=== PATIENT | female | born 1985 | race Caucasian/White ===

== ENCOUNTER → 2018-03-08 | Outpatient (CLI) | payer SELFPAY ==
[~2018-03-08] MED LIST: AMOCLA875 PO; AMOX500 PO; ANTOXYBENA LEFTEAR; CIPR250 PO; CIPR500 PO; CYCL10 PO; DESO.05TL TP; HYDACE5 PO; HYDACE5325 PO; IBUP600 PO; METR500 PO; NITR100CA PO; Norco 5-325 Ta1 EACH PO; OXYACE5T PO; OXYACE7.5T PO; PHENA200 PO; PRED20 PO; PROM25 PO; PSEU120ER PO; Percocet 5-3251 EACH PO; QUET300; RXCYCL10 PO; RXOXYACE PO; SULTRIDS PO; TRAM50 PO; Zithromax250 MG PO; Zofran Odt8 MG SL
[2018-03-10 16:40] LABS: Adenovirus F 40/41 Not Detected (NOT DETECT); Astrovirus Not Detected (NOT DETECT); Campylobacter Sp Not Detected (NOT DETECT); Cryptosporidium Not Detected (NOT DETECT); Cyclospora Cayetanensis Not Detected (NOT DETECT); E. Coli O157 Not Detected (NOT DETECT); Entamoeba Histolytica Not Detected (NOT DETECT); Enteroaggregative E. coli-EAEC Not Detected (NOT DETECT); Enteropathogenic E. coli-EPEC Not Detected (NOT DETECT); Enterotoxigenic E. coli-ETEC Not Detected (NOT DETECT); Giardia Lamblia Not Detected (NOT DETECT); Norovirus GI/GII Not Detected (NOT DETECT); Plesiomonas Shigelloides Not Detected (NOT DETECT); Rotavirus A Not Detected (NOT DETECT); Salmonella Sp Not Detected (NOT DETECT); Sapovirus Not Detected (NOT DETECT); Shiga Toxin-prod E. coli-STEC Not Detected (NOT DETECT); Shigella/Enteroin E. coli-EIEC Not Detected (NOT DETECT); Vibrio Cholerae Not Detected (NOT DETECT); Vibrio Sp Not Detected (NOT DETECT); Yersinia Enterocolitica Not Detected (NOT DETECT)
== END | disposition home or self-care (01) ==
LOC: LAB SHORT 14:00 → LAB EV 14:00
PROVIDERS: General Practice
DX: R19.7 Diarrhea, unspecified (principal)
CPT/HCPCS: 87507

== ENCOUNTER 2018-05-18 10:13 | Emergency (ER) | payer SELFPAY ==
[~2018-05-18] VITALS: Ht 165.1 cm; Wt 66.7 kg
[2018-05-18 10:50] LABS: BASOPHILS ABSOLUTE AUTO 0.04 K/mm3 (0.00-0.23); BASOPHILS PERCENT AUTO 0 % (0-2); EOSINOPHILS ABSOLUTE AUTO 0.16 K/mm3 (0.00-0.68); EOSINOPHILS PERCENT AUTO 1 % (0-6); Hematocrit 39.9 % (33.0-51.0); Hemoglobin 13.6 g/dL (11.5-16.0); IMMATURE GRAN ABSOLUTE AUTO 0.06 K/mm3 (0.00-0.10); IMMATURE GRAN PERCENT AUTO 0 % (0-1); LYMPHOCYTES ABSOLUTE AUTO 0.91 K/mm3 (0.84-5.20); LYMPHOCYTES PERCENT AUTO 5 % (21-46); MONOCYTES ABSOLUTE AUTO 0.46 K/mm3 (0.16-1.47); MONOCYTES PERCENT AUTO 3 % (4-13); Mean Corpuscular HGB Conc 34.1 g/dL (31.5-36.5); Mean Corpuscular Volume 88 fL (80-100); Mean Platelet Volume 12.1 fL (9.1-12.4); NEUTROPHILS ABSOLUTE AUTO 15.31 K/mm3 (1.96-9.15); NEUTROPHILS PERCENT AUTO 90 % (41-73); Platelet Count 161 K/mm3 (150-400); RDW Coefficient Variation 13.1 % (11.7-14.2); RDW Standard Deviation 42.4 fL (35.1-46.3); Red Blood Cell Count 4.53 M/mm3 (3.80-5.20); White Blood Cell Count 16.94 K/mm3 (4.00-11.30)
[2018-05-18 11:02] LABS: Source, Urine Clean Catch
[2018-05-18 11:08] LABS: Bilirubin, Urine Neg (Neg); Blood, Urine Neg (Neg); Glucose Qualitative, Urine Neg (Neg); Ketones, Urine Neg (Neg); Leukocyte Esterase, Urine Neg (Neg); Nitrite, Urine Neg (Neg); Protein, Urine Neg (Neg); Specific Gravity, Urine 1.005 (1.003-1.022); Urobilinogen, Urine NORM (Normal)
[2018-05-18 11:10] LABS: Alanine Aminotransfer (ALT/SGP 26 U/L (12-78); Albumin, Blood 4.2 g/dL (3.4-5.0); Albumin/Globulin Ratio 1.3 (0.8-1.8); Alk Phos 59 U/L (50-136); Anion Gap 8 mmol/L (6-16); Aspartate Aminotrans (AST/SGOT 23 U/L (12-37); Bilirubin, Total 0.7 mg/dL (0.1-1.0); Blood Urea Nitrogen 15 mg/dL (8-24); Bun/Creatinine Ratio 18.4 (12.0-20.0); CO2, Blood 25 mmol/L (21-32); Chloride, Blood 107 mmol/L (98-108); Creatinine, Blood 0.82 mg/dL (0.40-1.00); Globulin, Blood 3.2 g/dL (2.2-4.0); Glomerular Filtration Rate >60 (60-); Glucose, Blood 114 mg/dL (70-99); Potassium, Blood 3.8 mmol/L (3.5-5.5); Sodium, Blood 140 mmol/L (136-145); Total Protein, Blood 7.4 g/dL (6.4-8.2)
[2018-05-18 11:11] LABS: C-REACTIVE PROTEIN, EXT RANGE 0.901 mg/dL (0.000-0.300)
[2018-05-18 12:03] LABS: Appearance, Urine Clear (Clear); Color, Urine Yellow (P-Yellow)
[2018-05-18] MEDS ORDERED: Flagyl500 MG PO (13:51)
[2018-05-18] MEDS ORDERED: CEFP200 PO (13:51)
[2018-05-18] MEDS ORDERED: HYDR1TAB94 PO (13:52)
== END 2018-05-18 14:53 | disposition home or self-care (01) ==
LOC: ER 10:13
PROVIDERS: Emergency Medicine
DX: K52.9 Noninfective gastroenteritis and colitis, unspecified (principal); F17.200 Nicotine dependence, unspecified, uncomplicated; Z88.8 Allergy status to other drugs, medicaments and biological substances
CPT/HCPCS: 36415; 74177; 80053; 81003; 81025; 83690; 85025; 85651; 86140; 96361; 96374; 99284; C9113; J7030; Q9967

== ENCOUNTER → 2018-12-20 | Outpatient (CLI) | payer OTHER ==
[~2018-12-20] MED LIST changes: +CEFP200 PO; +Flagyl250 MG PO; +Flagyl500 MG PO; +HYDR1TAB94 PO; +Prednisone20 MG PO; +Zofran Odt4 MG SL
[2018-12-23 02:12] LABS: CHLAMYDIA TRACHOMATIS, NAA Negative (Negative); HPV 16 Negative (Negative); HPV 18 Negative (Negative); HPV OTHER HR TYPES Negative (Negative); NEISSERIA GONORRHOEAE, NAA Negative (Negative)
== END ==
LOC: LAB SHORT 16:37 → LAB 16:37
PROVIDERS: Obstetrics & Gynecology
DX: Z36.89 Encounter for other specified antenatal screening (principal)
CPT/HCPCS: 87491; 87591; 87624; G0123

== ENCOUNTER → 2019-04-14 | Outpatient (CLI) | payer OTHER ==
[2019-04-14 12:57] LABS: Hematocrit 33.8 % (33.0-51.0); Hemoglobin 11.1 g/dL (11.5-16.0)
== END | disposition home or self-care (01) ==
LOC: LAB SHORT 11:00 → LAB 11:00
PROVIDERS: Obstetrics & Gynecology
DX: Z34.80 Encounter for supervision of other normal pregnancy, unspecified trimester (principal)
CPT/HCPCS: 82950; 85014; 85018

== ENCOUNTER → 2019-06-08 | Outpatient (CLI) | payer OTHER ==
[~2019-06-08] MED LIST changes: +MISO200 PO; +ORTHO MICRONO0.35 MG PO; +Oxycodone-Apap1 EAC3 PO; +PRENATAL PLUS1 EACH PO; +Prenatal Compl1 EACH PO
== END | disposition home or self-care (01) ==
LOC: LAB SHORT 14:28 → LAB 14:28
DX: Z34.80 Encounter for supervision of other normal pregnancy, unspecified trimester (principal)
CPT/HCPCS: 87081; 87653

== ENCOUNTER 2019-07-04 06:16 | Inpatient (IN) | payer OTHER ==
[~2019-07-04] VITALS: Ht 165.1 cm; Wt 92.7 kg
[~2019-07-04 06:16] MED LIST changes: -MISO200 PO; -ORTHO MICRONO0.35 MG PO; -Oxycodone-Apap1 EAC3 PO; -PRENATAL PLUS1 EACH PO; -Prenatal Compl1 EACH PO
[2019-07-04 07:21] LABS: BASOPHILS ABSOLUTE AUTO 0.03 K/mm3 (0.00-0.23); BASOPHILS PERCENT AUTO 0 % (0-2); EOSINOPHILS ABSOLUTE AUTO 0.13 K/mm3 (0.00-0.68); EOSINOPHILS PERCENT AUTO 2 % (0-6); Hematocrit 32.2 % (33.0-51.0); Hemoglobin 10.2 g/dL (11.5-16.0); IMMATURE GRAN ABSOLUTE AUTO 0.04 K/mm3 (0.00-0.10); IMMATURE GRAN PERCENT AUTO 1 % (0-1); LYMPHOCYTES PERCENT AUTO 29 % (21-46); MONOCYTES ABSOLUTE AUTO 0.91 K/mm3 (0.16-1.47); MONOCYTES PERCENT AUTO 11 % (4-13); Mean Corpuscular HGB 26.6 pg (26.0-34.0); Mean Corpuscular HGB Conc 31.7 g/dL (31.5-36.5); Mean Corpuscular Volume 84 fL (80-100); NEUTROPHILS ABSOLUTE AUTO 5.04 K/mm3 (1.96-9.15); NEUTROPHILS PERCENT AUTO 58 % (41-73); Platelet Count 123 K/mm3 (150-400); RDW Standard Deviation 45.7 fL (35.1-46.3); Red Blood Cell Count 3.83 M/mm3 (3.80-5.20); White Blood Cell Count 8.65 K/mm3 (4.00-11.30)
[2019-07-04] MEDS ORDERED: Prenatal Compl1 EACH PO (08:02)
[2019-07-04 13:54] LABS: PCO2 Cord - Arterial 21.1 mmHg (40-50); PO2 Cord - Arterial 22.9 mmHg (16-20); pH Cord - Arterial 7.15 (7.28-7.35)
[2019-07-04 13:56] LABS: PCO2 Cord - Venous 42.6 mmHg (40-50); PO2 Cord - Venous 21.1 mmHg (28-32); pH Umbilical Cord - Venous 7.25 (7.26-7.35)
--- NOTE | 2019-07-04 18:00 | NUR ---
PP VOID #2. NICOLA MEDS AT THE BEDSIDE
--- NOTE | 2019-07-04 18:03 | NUR ---
1430 ACTIVITY OOB TO BATHROM TO VOID. PATIENT UNABLE TO AMBULATE DUE TO SORE HIPS AND PELVIC AREA. TO BATHROOM VIA ROLLING CHAIR AND BACK TO BED. REMINDED PATIENT TO CALL FOR ASSISTANCE PRIOR TO GETTING UP EACH TIME UNTIL ABLE TO AMBULATE UNAIDED
[2019-07-05 05:45] LABS: Hematocrit 26.9 % (33.0-51.0); Hemoglobin 8.5 g/dL (11.5-16.0); Mean Corpuscular HGB 26.8 pg (26.0-34.0); Mean Corpuscular HGB Conc 31.6 g/dL (31.5-36.5); Mean Corpuscular Volume 85 fL (80-100); Platelet Count 121 K/mm3 (150-400); RDW Coefficient Variation 15.3 % (11.7-14.2); RDW Standard Deviation 47.1 fL (35.1-46.3); Red Blood Cell Count 3.17 M/mm3 (3.80-5.20); White Blood Cell Count 16.72 K/mm3 (4.00-11.30)
[2019-07-05 05:48] LABS: Mean Platelet Volume 13.7 fL (9.1-12.4)
--- NOTE | 2019-07-05 07:51 | NUR ---
Pt resting in bed, feeding nb. Denies needs, will call when nb finished for assessment.
--- NOTE | 2019-07-05 17:00 | NUR ---
Printed d/c instructions and teaching reviewed w/pt and family. Questions answered to her satisfaction. ID bands matched w/nb. Pt still having difficulty and pain w/ambulation but states she will be ok w/her SO and family once at home. No acute changes t/o shift. Pt d/c'd home in wheelchair to care of family.
[2019-09-06] MEDS ORDERED: PRENATAL PLUS1 EACH PO (12:38)
[2019-09-06] MEDS ORDERED: ORTHO MICRONO0.35 MG PO (12:39)
== END 2019-07-05 16:58 | disposition home or self-care (01) | DRG 788 ==
LOC: OBS 06:16 → BC 06:17 → OBS 06:18 → BC 06:18
PROVIDERS: Advanced Practice Midwife; ADMIT Obstetrics & Gynecology
PROC: 10D00Z1 Extraction of Products of Conception, Low, Open Approach (ICD-10-PCS; principal; 2019-07-04)
DX: O34.211 Maternal care for low transverse scar from previous cesarean delivery (principal); Z3A.39 39 weeks gestation of pregnancy; Z37.0 Single live birth
CPT/HCPCS: 36415; 51702; 59025; 82803; 85025; 85027; 85460; 96372; A9270; J1885; J2001; J2405; J2590; J2790; J3010; J7120

== ENCOUNTER 2019-07-14 10:14 | Emergency (ER) | payer OTHER ==
[~2019-07-14] VITALS: Ht 165.1 cm; Wt 86.2 kg
[~2019-07-14 10:14] MED LIST changes: +Prenatal Compl1 EACH PO
[2019-07-14 10:30] LABS: Calcium, Ionized (POC) 1.11 mmol/L (1.10-1.46); Chloride (POC) 110 mmol/L (98-108); Creatinine (POC) 0.9 mg/dL (0.6-1.0); Glucose (ISTAT POC) 85 mg/dL (70-99); Hemoglobin (POC) 9.5 g/dL (12.0-16.0); Potassium (POC) 4.1 mmol/L (3.5-5.5); Sodium (POC) 140 mmol/L (135-148); Total CO2 (POC) 24 mmol/L (21-32)
[2019-07-14 15:32] LABS: BASOPHILS ABSOLUTE AUTO 0.04 K/mm3 (0.00-0.23); BASOPHILS PERCENT AUTO 0 % (0-2); EOSINOPHILS ABSOLUTE AUTO 0.18 K/mm3 (0.00-0.68); EOSINOPHILS PERCENT AUTO 2 % (0-6); Hematocrit 28.6 % (33.0-51.0); Hemoglobin 8.9 g/dL (11.5-16.0); IMMATURE GRAN ABSOLUTE AUTO 0.05 K/mm3 (0.00-0.10); IMMATURE GRAN PERCENT AUTO 1 % (0-1); LYMPHOCYTES PERCENT AUTO 22 % (21-46); MONOCYTES ABSOLUTE AUTO 0.62 K/mm3 (0.16-1.47); MONOCYTES PERCENT AUTO 7 % (4-13); Mean Corpuscular HGB 27.4 pg (26.0-34.0); Mean Corpuscular HGB Conc 31.1 g/dL (31.5-36.5); Mean Platelet Volume 11.7 fL (9.1-12.4); NEUTROPHILS ABSOLUTE AUTO 6.42 K/mm3 (1.96-9.15); NEUTROPHILS PERCENT AUTO 68 % (41-73); Platelet Count 326 K/mm3 (150-400); RDW Coefficient Variation 15.6 % (11.7-14.2); RDW Standard Deviation 50.1 fL (35.1-46.3); Red Blood Cell Count 3.25 M/mm3 (3.80-5.20); White Blood Cell Count 9.41 K/mm3 (4.00-11.30)
[2019-07-14 15:34] LABS: Mean Corpuscular Volume 88 fL (80-100)
[2019-09-06] MEDS ORDERED: PRENATAL PLUS1 EACH PO (12:38)
[2019-09-06] MEDS ORDERED: ORTHO MICRONO0.35 MG PO (12:39)
== END 2019-07-14 11:25 | disposition home or self-care (01) ==
LOC: ER 10:14
PROVIDERS: Emergency Medicine; Obstetrics & Gynecology
DX: O72.2 Delayed and secondary postpartum hemorrhage (principal); Z88.8 Allergy status to other drugs, medicaments and biological substances
CPT/HCPCS: 36415; 80047; 85014; 85025; 99284

== ENCOUNTER 2019-07-19 12:56 | Day surgery (SDC) | payer OTHER ==
[~2019-07-19] VITALS: Ht 165.1 cm; Wt 81.7 kg
[2019-07-19 13:53] LABS: BASOPHILS ABSOLUTE AUTO 0.07 K/mm3 (0.00-0.23); BASOPHILS PERCENT AUTO 1 % (0-2); EOSINOPHILS ABSOLUTE AUTO 0.15 K/mm3 (0.00-0.68); EOSINOPHILS PERCENT AUTO 1 % (0-6); Hematocrit 35.3 % (33.0-51.0); Hemoglobin 10.9 g/dL (11.5-16.0); IMMATURE GRAN ABSOLUTE AUTO 0.03 K/mm3 (0.00-0.10); IMMATURE GRAN PERCENT AUTO 0 % (0-1); LYMPHOCYTES ABSOLUTE AUTO 2.24 K/mm3 (0.84-5.20); LYMPHOCYTES PERCENT AUTO 19 % (21-46); MONOCYTES ABSOLUTE AUTO 0.61 K/mm3 (0.16-1.47); MONOCYTES PERCENT AUTO 5 % (4-13); Mean Corpuscular HGB 26.6 pg (26.0-34.0); Mean Corpuscular HGB Conc 30.9 g/dL (31.5-36.5); Mean Corpuscular Volume 86 fL (80-100); Mean Platelet Volume 11.5 fL (9.1-12.4); NEUTROPHILS ABSOLUTE AUTO 8.43 K/mm3 (1.96-9.15); NEUTROPHILS PERCENT AUTO 73 % (41-73); Platelet Count 409 K/mm3 (150-400); RDW Coefficient Variation 14.9 % (11.7-14.2); RDW Standard Deviation 47.1 fL (35.1-46.3); White Blood Cell Count 11.53 K/mm3 (4.00-11.30)
[2019-07-19 14:51] LABS: Alanine Aminotransfer (ALT/SGP 36 U/L (12-78); Albumin, Blood 3.4 g/dL (3.4-5.0); Albumin/Globulin Ratio 0.9 (0.8-1.8); Alk Phos 261 U/L (50-136); Anion Gap 9 mmol/L (6-16); Aspartate Aminotrans (AST/SGOT 23 U/L (12-37); Bilirubin, Total 0.2 mg/dL (0.1-1.0); Blood Urea Nitrogen 19 mg/dL (8-24); Bun/Creatinine Ratio 29.8 (12.0-20.0); CO2, Blood 24 mmol/L (21-32); Calcium, Blood 8.6 mg/dL (8.5-10.1); Chloride, Blood 109 mmol/L (98-108); Creatinine, Blood 0.64 mg/dL (0.40-1.00); Globulin, Blood 3.8 g/dL (2.2-4.0); Glomerular Filtration Rate >60 (60-); Glucose, Blood 95 mg/dL (70-99); Potassium, Blood 4.3 mmol/L (3.5-5.5); Sodium, Blood 142 mmol/L (136-145); Total Protein, Blood 7.2 g/dL (6.4-8.2)
[2019-07-19] MEDS ORDERED: MISO200 PO (15:50)
[2019-07-19] MEDS ORDERED: Oxycodone-Apap1 EAC3 PO (15:59)
--- NOTE | 2019-07-19 17:19 | NUR ---
INTO SDS VIA [id number]. PT DENIES PAIN OR NAUSEA AT THIS TIME. PT 2 WEEKS POST .BABY @ BEDESIDE PT IS . HISTORY AND ALLERGIES REVIEWED. LUNGS CLEAR. NPO STATUS CONFIRMED.
--- NOTE | 2019-07-19 19:53 | NUR ---
PACU/DAY SURGERY RN | DISCHARGE This RN took patient from PACU to day [facility] step-down. VSS. A/O. Gave oral pain medication per Dr. Overton orders. Patient stated they confirmed that medications "were okay while " per Dr. Overton. Discharge instructions given, all questions answered. Patient stated she gets nauseated from pain medication, gave Reglan per order. Patient up to bathroom, steady on feet. According to Chapis SLOAN, patient "passed large clot" while using the restroom. Advised patient to watch closely for increased bleeding. All vital signs stable. Patient rested and breast fed their baby. IV dc'ed without issue. Patient is aware to call Dr. Overton's office with any issues. Patient tolerated crackers and water without issue. All belonings returned to patient. Patient taken in wheelchair to front entrance by Chapis SLOAN.
--- NOTE | 2019-07-21 13:32 | NUR ---
07/21/19 1332 Morena Schwartz VERIFICATIONS: EDIT CHART.
[2019-09-06] MEDS ORDERED: PRENATAL PLUS1 EACH PO (12:38)
[2019-09-06] MEDS ORDERED: ORTHO MICRONO0.35 MG PO (12:39)
== END 2019-07-20 19:53 | disposition home or self-care (01) ==
LOC: ER 12:56 → SURS 12:57 → ORSCMMR 17:06 → SURS 07-20 19:53
PROVIDERS: Obstetrics & Gynecology
PROC: 10D17ZZ Extraction of Products of Conception, Retained, Via Natural or Artificial Opening (ICD-10-PCS; principal; 2019-07-19 18:00)
DX: O72.2 Delayed and secondary postpartum hemorrhage (principal); O86.12 Endometritis following delivery; D50.9 Iron deficiency anemia, unspecified
CPT/HCPCS: 36415; 80053; 85025; 86900; 86901; 88305; 99284; A9270-GY; J0690; J1100; J1885; J2210; J2250; J2405; J2704; J2765; J3010; J7120

== ENCOUNTER 2019-09-12 06:48 | Day surgery (SDC) | payer OTHER ==
[~2019-09-12] VITALS: Ht 165.1 cm; Wt 73.7 kg
[~2019-09-12 06:48] MED LIST changes: +MISO200 PO; +ORTHO MICRONO0.35 MG PO; +Oxycodone-Apap1 EAC3 PO; +PRENATAL PLUS1 EACH PO
--- NOTE | 2019-09-12 07:52 | NUR ---
PT ADMITTED TO [facility]. AGREES WITH PLANNED SURGERY. LUNG SOUNDS CLEAR.
--- NOTE | 2019-09-12 09:06 | NUR ---
09/12/19 0906 Primitivo Dyer NO PRE OP ANTIBIOTICS ORDERED PER DR VARGAS.
--- NOTE | 2019-09-12 10:05 | NUR ---
RECIEVED PT FROM PACU. PT SLEEPY. C/O ABD CRAMPING 03/09. PAIN MEDS GIVEN. NICOLA PAD IN PLACE WITH SCANT AMOUNT OF RED DRAINAGE. STERI STIPS IN PLACE, SMALL AMOUNT OF DRAINAGE NOTED ON STRIPS. PT STATES NAUSEA HAS IMPROVED.
--- NOTE | 2019-09-12 10:18 | NUR ---
PT STATES PAIN MEDS HELPED. TOLERATING ICE CHIPS. FLUIDS AND CRACKERS GIVEN TO PT. AT BEDSIDE.
--- NOTE | 2019-09-12 10:39 | NUR ---
REPORT TO NEERU AARON RN.
--- NOTE | 2019-09-12 11:08 | NUR ---
1050- Discharge instructions reviewed with patient. Patient verbalizes understanding. Copy given to patient to take home. NICOLA PAD GIVEN, PT DRESSED. Discharged via wheelchair to private car for ride home. PT STATES PAIN AND NAUSEA IS BETTER AND READY FOR DC HOME.
== END 2019-09-12 10:55 | disposition home or self-care (01) ==
LOC: ORSCMMR 06:48 → ORD 08:30 → ORSCMMR 10:55 → ORD 11:15
PROVIDERS: Obstetrics & Gynecology
PROC: 0UT74ZZ Resection of Bilateral Fallopian Tubes, Percutaneous Endoscopic Approach (ICD-10-PCS; principal; 2019-09-12 08:30)
DX: Z30.2 Encounter for sterilization (principal); D28.2 Benign neoplasm of uterine tubes and ligaments
CPT/HCPCS: 88302; J0171; J1100; J2250; J2405; J2704; J2710; J2765; J3010; J7120

== ENCOUNTER 2020-04-26 19:16 | Emergency (ER) | payer OTHER ==
[~2020-04-26] VITALS: Ht 165.1 cm; Wt 72.6 kg
[2020-04-26] MEDS ORDERED: PROBIOTIC1 EAC1 PO (19:27)
[2020-04-26 19:58] LABS: BASOPHILS ABSOLUTE AUTO 0.05 K/mm3 (0.00-0.23); BASOPHILS PERCENT AUTO 1 % (0-2); EOSINOPHILS ABSOLUTE AUTO 0.15 K/mm3 (0.00-0.68); EOSINOPHILS PERCENT AUTO 2 % (0-6); Hematocrit 36.2 % (33.0-51.0); Hemoglobin 11.8 g/dL (11.5-16.0); IMMATURE GRAN ABSOLUTE AUTO 0.02 K/mm3 (0.00-0.10); IMMATURE GRAN PERCENT AUTO 0 % (0-1); LYMPHOCYTES ABSOLUTE AUTO 3.93 K/mm3 (0.84-5.20); LYMPHOCYTES PERCENT AUTO 39 % (21-46); MONOCYTES ABSOLUTE AUTO 0.66 K/mm3 (0.16-1.47); MONOCYTES PERCENT AUTO 7 % (4-13); Mean Corpuscular HGB 28.2 pg (26.0-34.0); Mean Corpuscular HGB Conc 32.6 g/dL (31.5-36.5); Mean Corpuscular Volume 86 fL (80-100); NEUTROPHILS ABSOLUTE AUTO 5.26 K/mm3 (1.96-9.15); NEUTROPHILS PERCENT AUTO 52 % (41-73); Platelet Count 194 K/mm3 (150-400); RDW Coefficient Variation 14.5 % (11.7-14.2); Red Blood Cell Count 4.19 M/mm3 (3.80-5.20); White Blood Cell Count 10.07 K/mm3 (4.00-11.30)
[2020-04-26 20:03] LABS: Source, Urine Clean Catch
[2020-04-26 20:07] LABS: Bilirubin, Urine Neg (Neg); Blood, Urine Neg (Neg); Glucose Qualitative, Urine Neg (Neg); Ketones, Urine Neg (Neg); Leukocyte Esterase, Urine Neg (Neg); Nitrite, Urine Neg (Neg); Protein, Urine Neg (Neg); Urobilinogen, Urine NORM (Normal)
[2020-04-26 20:10] LABS: Appearance, Urine Clear (Clear); Color, Urine Yellow (P-Yellow)
[2020-04-26 20:15] LABS: Alanine Aminotransfer (ALT/SGP 24 U/L (12-78); Albumin, Blood 3.6 g/dL (3.4-5.0); Albumin/Globulin Ratio 1.1 (0.8-1.8); Alk Phos 51 U/L (50-136); Anion Gap 11 mmol/L (6-16); Aspartate Aminotrans (AST/SGOT 16 U/L (12-37); Bilirubin, Total 0.4 mg/dL (0.1-1.0); Blood Urea Nitrogen 15 mg/dL (8-24); Bun/Creatinine Ratio 17.7 (12.0-20.0); CO2, Blood 21 mmol/L (21-32); Calcium, Blood 8.1 mg/dL (8.5-10.1); Chloride, Blood 110 mmol/L (98-108); Creatinine, Blood 0.85 mg/dL (0.40-1.00); Globulin, Blood 3.2 g/dL (2.2-4.0); Glomerular Filtration Rate >60 (60-); Glucose, Blood 108 mg/dL (70-99); Sodium, Blood 142 mmol/L (136-145); Total Protein, Blood 6.8 g/dL (6.4-8.2)
[2020-04-26] MEDS ORDERED: CIME400 PO (21:52)
== END 2020-04-26 22:10 | disposition home or self-care (01) ==
LOC: ER 19:16
PROVIDERS: Emergency Medicine
DX: R55 Syncope and collapse (principal); R11.2 Nausea with vomiting, unspecified; R10.11 Right upper quadrant pain; F32.9 Major depressive disorder, single episode, unspecified; Z88.8 Allergy status to other drugs, medicaments and biological substances; Z79.899 Other long term (current) drug therapy; Z87.891 Personal history of nicotine dependence
CPT/HCPCS: 76705; 80053; 81003; 81025; 83690; 85025; 96361; 96374; 99285-25; J2405; J7030

== ENCOUNTER → 2020-07-30 | Outpatient (CLI) | payer OTHER ==
[~2020-07-30] MED LIST changes: +CIME400 PO; +PROBIOTIC1 EAC1 PO
[2020-07-31 06:54] LABS: T. vaginalis (DNA Probe) Negative (NEGATIVE)
[2020-07-31 06:55] LABS: Candida species (DNA Probe) Negative (NEGATIVE); G. vaginalis (DNA Probe) Negative (NEGATIVE)
== END | disposition home or self-care (01) ==
LOC: LAB 11:14 → LAB SHORT 11:14
PROVIDERS: Advanced Practice Midwife
DX: N76.0 Acute vaginitis (principal)
CPT/HCPCS: 87480; 87510; 87660

== ENCOUNTER → 2022-01-30 | Outpatient (CLI) | payer OTHER | END | disposition home or self-care (01) | LOC: PLD 07:48 → LAB SHORT 07:48 | DX: N93.9 Abnormal uterine and vaginal bleeding, unspecified (principal) | CPT/HCPCS: 88305 ==

== ENCOUNTER 2022-03-10 09:02 | Day surgery (SDC) | payer OTHER ==
[~2022-03-10] VITALS: Ht 165.1 cm; Wt 74.5 kg
--- NOTE | 2022-03-10 09:30 | NUR ---
Ambulatory in Day Surgery ARRIVES WITH MOM. History, Chart, Medications and Allergies reviewed before start of procedure. Lungs clear T/O to Auscultation. Patient confirms NPO status and agrees with scheduled surgery. Pre-Op teaching done. Pt verbalizes understanding.
--- NOTE | 2022-03-10 12:28 | NUR ---
03/10/22 1228 Conner Austin DC AT 1200 WITH 600CC WITH CLEAR YELLOW URINE. NEW DEVINE INSERTED BY DR KOCH AT 1205 FOR CYSTO AND BLADDER SLING INSTERTION.
[2022-03-10] MEDS ORDERED: ACET500 PO (15:21)
[2022-03-10] MEDS ORDERED: ONDA4 PO (15:22)
[2022-03-10] MEDS ORDERED: IBU800 MG PO (15:22)
[2022-03-10] MEDS ORDERED: OXAYDO5 M1 PO (15:23)
--- NOTE | 2022-03-10 17:07 | NUR ---
SHIFT SUMMARY PATIENT NEW ADMIT TO UNIT POST OP HYSTER WITH DR SANTO VARGAS. NAUSEATED WITH 1 EPISODE EMESIS AT THIS TIME. MEDICATED FOR PAIN WITH TORADOL. ABD LAP SITES X4 C/D/I. MODERATE RED DRAINAGE PER VAGINA. NICOLA PAD CHANGED X2. PATIENT ABLE TO AMBULATE TO BATHROOM AND VOIDING WELL. RESTING IN BED AT THIS TIME.
--- NOTE | 2022-03-10 19:40 | NUR ---
DISCHARGE PT EDUCATED ON AND RECEIVED PRINTED DC INSTRUCTIONS AND VERBALIZED AN UNDERSTANDING. IVS DC'D. PT MOTHER IN ROOM FILLED AND PICKED UP RX. PT REPORTS BEING ABLE TO TOLERATE APPLESAUCE WITHOUT NAUSEA. PT REPORTS TOLERABLE PAIN AND IS VOIDING SPONTANEOUSLY WITH MINIMAL VAGINAL BLEEDING. PT GATHERING PERSONAL BELONGINGS AND REPORTS SHE WANTED TO AMBULATE INDEPENDENTLY TO HER MOM'S VEHICLE.
== END 2022-03-10 19:44 | disposition home or self-care (01) ==
LOC: ORSCMMR 09:02 → ORD 10:30 → ORSCMMR 10:30 → SURS 14:14 → ORSCMMR 19:44
PROVIDERS: Obstetrics & Gynecology
PROC: 0TSD0ZZ Reposition Urethra, Open Approach (ICD-10-PCS; principal; 2022-03-10 10:30)
PROC: 0UT94ZZ Resection of Uterus, Percutaneous Endoscopic Approach (ICD-10-PCS; principal; 2022-03-10 10:30)
PROC: 8E0W4CZ Robotic Assisted Procedure of Trunk Region, Percutaneous Endoscopic Approach (ICD-10-PCS; principal; 2022-03-10 10:30)
DX: N93.9 Abnormal uterine and vaginal bleeding, unspecified (principal); N39.3 Stress incontinence (female) (male); D50.9 Iron deficiency anemia, unspecified; K66.0 Peritoneal adhesions (postprocedural) (postinfection); Z30.432 Encounter for removal of intrauterine contraceptive device
CPT/HCPCS: 58570; 57288; S2900; 88307; A9270; C1771; J0690; J1100; J1885; J2250; J2405; J2704; J2765; J3010; J7120

== ENCOUNTER → 2022-09-27 | Outpatient (CLI) | payer OTHER ==
[~2022-09-27] MED LIST changes: +ACET500 PO; +IBU800 MG PO; +ONDA4 PO; +OXAYDO5 M1 PO
== END | disposition home or self-care (01) ==
LOC: LAB SHORT 07:25 → LAB 07:25
DX: R39.89 Other symptoms and signs involving the genitourinary system (principal); R30.0 Dysuria
CPT/HCPCS: 87077; 87086; 87186

== ENCOUNTER → 2022-12-10 | Outpatient (CLI) | payer OTHER ==
[2022-12-11 10:31] LABS: Candida species (DNA Probe) Negative (NEGATIVE); G. vaginalis (DNA Probe) Negative (NEGATIVE); T. vaginalis (DNA Probe) Negative (NEGATIVE)
== END | disposition home or self-care (01) ==
LOC: LAB SHORT 17:17
PROVIDERS: Obstetrics & Gynecology
DX: B37.31 Acute candidiasis of vulva and vagina (principal)
CPT/HCPCS: 87480; 87510; 87660